=== PATIENT | female | born 1990 | race African-American/Black ===

== ENCOUNTER 2018-10-31 09:33 | Emergency (ER) | payer OTHER ==
[2018-10-31 09:52] VITALS: BMI 33.8
--- NOTE | 2018-10-31 10:20 | PDOC ---
History of Present Illness - General Chief Complaint: Pain Stated Complaint: DIARRHEA/VOMITING Time Seen by Provider: 10/31/18 10:19 History Source: Patient Exam Limitations: No Limitations - History of Present Illness Initial Comments: 10/31/18 10:38 28 year old woman A3 with a history of HTN who presents with nonbloody vomiting (8x) and nonbloody diarrhea (4x) onset this am at 0400. The patient noted some mid abdominal and lower back cramping rated 8-9/10. She had some vaginal spotting 1 day ago but does not have normal menses since she had her IUD placed 3 years ago. She is sexually active and does not use any other form of contraception. She denies fever, chest pain, shortness of breath, recent illness of recent travel. She has no other complaints at bedside. PMHC: HTN Meds: losartan, amlodipine PSHX: c-sec, R tube and ovary removal 2/2 dermoid cyst Past History - Past Medical History Allergies/Adverse Reactions: Allergies Allergy/AdvReac Type Severity Reaction Status Date / Time No Known Allergies Allergy Verified 10/31/18 09:39 Home Medications: Ambulatory Orders Acetaminophen [Tylenol] 650 mg PO BID #14 capsule 10/31/18 Famotidine [Pepcid -] 20 mg PO BID #14 tablet 10/31/18 Mag Hydrox/Al Hydrox/Simeth [Mylanta Suspension -] 30 ml PO Q6H #1 bottle Ondansetron [Zofran -] 4 mg PO BID #14 tablet 10/31/18 COPD: No - Suicide/Smoking/Psychosocial Hx Smoking History: Never smoked Information on smoking cessation initiated: No Hx Alcohol Use: No Drug/Substance Use Hx: No Review of Systems - Review of Systems Able to Perform ROS?: Yes Is the patient limited [place]ian proficient: No Constitutional: No: Chills, Diaphoresis, Fever HEENTM: No: Blurred Vision, Tinnitus Respiratory: No: Cough, Orthopnea, Shortness of Breath Cardiac (ROS): No: Chest Pain, Lightheadedness, Palpitations, Syncope ABD/GI: Yes: Diarrhea, Nausea, Vomiting. No: Constipated : No: Burning, Dysuria, Hematuria, Incontinence Musculoskeletal: Yes: Back Pain Integumentary: No: Bruising Neurological: No: Headache, Numbness, Paresthesia, Tingling *Physical Exam - Vital Signs Last Vital Signs Temp Pulse Resp BP Pulse Ox 99 F 98 H 18 145/80 100 10/31/18 09:37 10/31/18 09:37 10/31/18 09:37 10/31/18 09:37 10/31/18 09:37 - Physical Exam Comments: 10/31/18 10:51 GENERAL: Awake, alert, and fully oriented, in no acute distress HEAD: No signs of trauma, normocephalic, atraumatic EYES: EOMI, sclera anicteric, conjunctiva clear ENT: oropharynx clear without exudates. Moist mucosa NECK: Normal ROM, supple LUNGS: No distress, speaks full sentences, clear to auscultation bilaterally HEART: Regular rate and rhythm, normal S1 and S2, no murmurs, rubs or gallops, peripheral pulses normal and equal bilaterally. ABDOMEN: Soft, nontender, normoactive bowel sounds. No guarding, no rebound. No masses BACK: No CVA tenderness EXTREMITIES : Normal inspection, Normal range of motion, no edema. No clubbing or cyanosis. NEUROLOGICAL: Cranial nerves II through XII grossly intact. Normal speech, no focal sensorimotor deficits SKIN: Warm, Dry, normal turgor, no rashes or lesions noted PELVIC: closed cervical os w/ IUD string in place, physiologic fluid, no cervical motion tenderness ED Treatment Course - LABORATORY CBC & Chemistry Diagram: 10/31/18 11:00 10/31/18 11:00 Medical Decision Making - Medical Decision Making 10/31/18 10:50 28 year old woman A3 with a history of HTN who presents with nonbloody vomiting (8x) and nonbloody diarrhea (4x) onset this am at 0400. The patient noted some mid abdominal and lower back cramping rated 8-9/10. She had some vaginal spotting 1 day ago but does not have normal menses since she had her IUD placed 3 years ago. ED Course: consider ectopic vs gastroenteritis vs pancreatitis vs uti vs pyelo cbc, cmp, lipase, ua, ucx, tvus reglan, tylneol, ivf, pepcid 10/31/18 11:31 elevated % neutrophils 10/31/18 11:57 ua and cmp unremarkable. 03/28/19 15:04 TVUS showed intact IUD and possible endometrial polyp patient to foloow up with obgyn Patient stable for discharge. Informed of all lab and imaging results. Given follow up instructions and strict return precautions. Patient expressed understanding and agree to plan. *DC/Admit/Observation/Transfer Diagnosis at time of Disposition: Vomiting Qualifiers: Vomiting type: unspecified Vomiting Intractability: unspecified Nausea presence : unspecified Qualified Code(s): R11.10 - Vomiting, unspecified Diarrhea Qualifiers: Diarrhea type: unspecified type Qualified Code(s): R19.7 - Diarrhea, unspecified - Discharge Dispostion Disposition: HOME Condition at time of disposition: Stable - Prescriptions Prescriptions: Acetaminophen [Tylenol] 650 mg PO BID #14 capsule Famotidine [Pepcid -] 20 mg PO BID #14 tablet Mag Hydrox/Al Hydrox/Simeth [Mylanta Suspension -] 30 ml PO Q6H #1 bottle Ondansetron [Zofran -] 4 mg PO BID #14 tablet - Referrals Referrals: Chyna Guzman MD [Primary Care Provider] - Jhoan Irwin MD [Staff Physician] - - Patient Instructions Printed Discharge Instructions: DI for Viral Gastroenteritis -- Adult Additional Instructions: You were seen in the ED for complaints of vomiting and diarrhea. In the ED you were evaluated with labwork and imaging. Your results showed possible endometrial polyp which showed be followed by OBGYN. There does not appear to be an acute need for immediate hospitalization. You are advised to follow up with your Primary Care Physician within 1 week. You were given a referral to OBGYN and are advised to follow up within 1 week. You were given a prescription for pepcid, maalox, tylenol and zofran and are advised to take medications as indicated. Drink plenty of fluids and introduce bland foods until you can tolerate a regular diet. Return to the ED immediately if you experience worsening vomiting, diarrhea, blood in vomit or stool, fevers, chest pain, nonmenstrual vaginal bleeding, shortness of breath or worsening abdominal pain. - Post Discharge Activity Forms/Work/School Notes: Back to Work
[2018-10-31] MEDS ORDERED: METOCLOPRAMIDE HCL INJECTION 10 MG/2 ML VIAL IVPUSH ONE (10:37)
[2018-10-31] MEDS ORDERED: ACETAMINOPHEN 325 MG TABLET (FP) PO ONE (10:37)
[2018-10-31] MEDS ORDERED: FAMOTIDINE 20 MG/50 ML IVPB 20 MG/50 ML MG IVPB ONE ×2 (10:41→10:50)
[2018-10-31] MEDS ORDERED: SODIUM CHLORIDE 1,000 ML IV SCH (10:45)
[2018-10-31] MEDS ORDERED: METOCLOPRAMIDE HCL INJECTION 10 MG/2 ML VIAL ONE (10:50)
[2018-10-31] MEDS ORDERED: ACETAMINOPHEN 325 MG TABLET (FP) ONE (10:50)
--- NOTE | 2018-10-31 11:12 | PDOC ---
Attending Attestation - Resident Resident Name: Domitila Hernandez - ED Attending Attestation I have performed the following: I have examined & evaluated the patient, The case was reviewed & discussed with the resident, I agree w/resident's findings & plan, Exceptions are as noted - HPI HPI: 10/31/18 11:08 28-year-old female history of hypertension presents with vomiting and diarrhea since this morning. Patient denies sick contacts or recent travels. Is unaware bad food. Started developing multiple episodes of vomiting epigastric pain. Patient also developed several episodes of loose stools. All nonbloody. No fevers or chills. However, patient also noted some vaginal spotting but has an IUD in place. Reports some uterine cramping but denies dysuria. - Physicial Exam PE: 10/31/18 11:08 GENERAL: Awake, alert, and fully oriented, in no acute distress HEAD: No signs of trauma EYES: EOMI, sclera anicteric, conjunctiva clear ENT: Auricles normal inspection, hearing grossly normal, nares patent, dry mucous membranes NECK: Normal ROM, supple, ABDOMEN: Soft, TTP epigastric. Mildly TTP suprapubic. Stapleton sign and mcburney sign negative. No guarding, no rebound. No masses METAL FENCE E[employer]OR exam as per resident EXTREMITIES: Normal range of motion, no edema. No clubbing or cyanosis. No cords, erythema, or tenderness NEUROLOGICAL: Cranial nerves II through XII grossly intact. Normal speech, normal gait SKIN: Warm, Dry, normal turgor, no rashes or lesions noted. - Medical Decision Making 10/31/18 11:08 Vital Signs Temp Pulse Resp BP Pulse Ox 99 F 98 H 18 145/80 100 10/31/18 09:37 10/31/18 09:37 10/31/18 09:37 10/31/18 09:37 10/31/18 09:37 I suspect patient likely has viral gastroenteritis given her symptoms. She may have developed a gastritis or vomiting. However, the patient was concerned about the vaginal spotting. We'll check for test. Also obtain a transvaginal ultrasound. Patient reports that she may be potentially do for her. Even though she is on her IUD. We'll check labs including urinalysis are all cystitis. Symptom control and IV fluids and reassess. 10/31/18 15:06 CBC, BMP 10/31/18 11:00 10/31/18 11:00 CMP Sodium 137 mmol/L (136-145) 10/31/18 11:00 Potassium 4.4 mmol/L (3.5-5.1) 10/31/18 11:00 Chloride 104 mmol/L (98-107) 10/31/18 11:00 Carbon Dioxide 24 mmol/L (21-32) 10/31/18 11:00 Anion Gap 8 MMOL/L (8-16) 10/31/18 11:00 BUN 16 mg/dL (7-18) 10/31/18 11:00 Creatinine 0.7 mg/dL (0.55-1.3) 10/31/18 11:00 Creat Clearance w eGFR 98.25 (>60) 10/31/18 11:00 Random Glucose 97 mg/dL (74-106) 10/31/18 11:00 Calcium 9.1 mg/dL (8.5-10.1) 10/31/18 11:00 Total Bilirubin 0.3 mg/dL (0.2-1) 10/31/18 11:00 AST 23 U/L (15-37) 10/31/18 11:00 ALT 16 U/L (13-61) 10/31/18 11:00 Alkaline Phosphatase 89 U/L (45-117) 10/31/18 11:00 Total Protein 7.7 g/dl (6.4-8.2) 10/31/18 11:00 Albumin 3.7 g/dl (3.4-5.0) 10/31/18 11:00 Lipase 145 U/L (73-393) 10/31/18 11:00 Beta HCG, Quant < 1.0 mIU/ml 10/31/18 11:00 Urine Test Results Urine Color Yellow 10/31/18 11:00 Urine Appearance Clear 10/31/18 11:00 Urine pH 7.0 (5.0-8.0) 10/31/18 11:00 Ur Specific [place] 1.023 (1.010-1.035) 10/31/18 11:00 Urine Protein Negative (NEGATIVE) 10/31/18 11:00 Urine Glucose (UA) Negative (NEGATIVE) 10/31/18 11:00 Urine Ketones Negative (NEGATIVE) 10/31/18 11:00 Urine Blood Trace (NEGATIVE) 10/31/18 11:00 Urine Nitrite Negative (NEGATIVE) 10/31/18 11:00 Urine Bilirubin Negative (NEGATIVE) 10/31/18 11:00 Ur Leukocyte Esterase Negative (NEGATIVE) 10/31/18 11:00 Ultrasound demonstrates no acute findings. IUD in place. Pt feels significantly better. The vaginal spotting had ceased. Given that she feels better, will d/c her as viral gastroenteritis. Will d/c with return precautions.
[2018-10-31 11:16] LABS: BASO % 0.2 % (0-2.0); EOS % 0.1 % (0-4.5); HEMATOCRIT 33.7 % (32.4-45.2); HEMOGLOBIN 10.7 GM/dL (10.7-15.3); LYMPH % 4.1 % (8-40); MCH 22.5 pg (25.7-33.7); MCHC 31.7 g/dl (32.0-36.0); MEAN CELL VOLUME 70.9 fl (80-96); MEAN PLT VOLUME 7.2 fl (7.5-11.1); MONO % 3.8 % (3.8-10.2); NEUT % 91.8 % (42.8-82.8); PLATELET COUNT 515 K/MM3 (134-434); RBC 4.76 M/mm3 (3.60-5.2); RDW 17.6 % (11.6-15.6)
[2018-10-31 11:40] LABS: EPI CELLS 6.2 /HPF (0-5); URINE APPEARANCE CLEAR; URINE BILIRUBIN NEGATIVE (NEGATIVE); URINE CASTS 1 /hpf (0-8); URINE COLOR YELLOW; URINE GLUCOSE (UA) NEGATIVE (NEGATIVE); URINE KETONE NEGATIVE (NEGATIVE); URINE LEUK ESTERASE NEGATIVE (NEGATIVE); URINE NITRITE NEGATIVE (NEGATIVE); URINE PROTEIN NEGATIVE (NEGATIVE); URINE RBC 1 /hpf (0-4); URINE WBC 1 /hpf (0-5)
[2018-10-31 11:41] LABS: HCG,QUALITATIVE URINE Negative
[2018-10-31 11:53] LABS: ALBUMIN 3.7 g/dl (3.4-5.0); ALK PHOS 89 U/L (45-117); ANION GAP 8 MMOL/L (8-16); BILIRUBIN,TOTAL 0.3 mg/dL (0.2-1); BLOOD UREA NITROGEN 16 mg/dL (7-18); CALCIUM 9.1 mg/dL (8.5-10.1); CHLORIDE 104 mmol/L (98-107); CO2 24 mmol/L (21-32); CREATININE 0.7 mg/dL (0.55-1.3); GLUCOSE,RANDOM 97 mg/dL (74-106); LIPASE 145 U/L (73-393); POTASSIUM 4.4 mmol/L (3.5-5.1); SGOT/AST 23 U/L (15-37); SGPT/ALT 16 U/L (13-61); SODIUM 137 mmol/L (136-145); TOT PROT 7.7 g/dl (6.4-8.2)
[2018-10-31 12:26] LABS: ANISOCYTOSIS 1+; MACROCYTOSIS 0; PLATELET ESTIMATE INCREASED
[2018-10-31] MEDS ORDERED: ONDANSETRON 4 MG/2 ML VIAL IVPUSH ONE (15:07)
[2018-10-31] MEDS ORDERED: ONDANSETRON 4 MG/2 ML VIAL ONE (15:16)
[2018-10-31 15:27] VITALS: BP 133/82; PULSE 89; TEMP 98
== END 2018-10-31 15:32 | disposition home or self-care (01) ==
LOC: JER 09:33
PROC: 3E033GC Introduction of Other Therapeutic Substance into Peripheral Vein, Percutaneous Approach (ICD-10-PCS; principal; 2018-10-31)
PROC: 3E033GC Introduction of Other Therapeutic Substance into Peripheral Vein, Percutaneous Approach (ICD-10-PCS; 2018-10-31)
PROC: 3E033GC Introduction of Other Therapeutic Substance into Peripheral Vein, Percutaneous Approach (ICD-10-PCS; 2018-10-31)
DX: A08.4 Viral intestinal infection, unspecified (principal); B97.89 Other viral agents as the cause of diseases classified elsewhere
CPT/HCPCS: 36415; 76830-TC; 80053; 81003; 83690; 84702; 84703; 85025; 99283-25; J7030